=== PATIENT | male | born 1950 ===

== ENCOUNTER 2019-01-04 14:24 | Outpatient (CLI) | payer OTHER ==
[2019-01-04] MEDS ORDERED: JANUVIA50 MG (16:44)
[2019-01-04] MEDS ORDERED: SYNTHROID50 MCG (16:45)
== END 2019-01-04 14:46 | disposition home or self-care (01) ==
LOC: MRI 14:24
DX: M51.36 Other intervertebral disc degeneration, lumbar region (principal)
CPT/HCPCS: 72148

== ENCOUNTER 2019-01-04 16:17 | Emergency (ER) | payer OTHER ==
[~2019-01-04] VITALS: Ht 185.4 cm; Wt 102.1 kg
[2019-01-04] MEDS ORDERED: JANUVIA50 MG (16:44)
[2019-01-04] MEDS ORDERED: SYNTHROID50 MCG (16:45)
== END 2019-01-04 21:05 | disposition home or self-care (01) ==
LOC: ER 16:17
DX: R42 Dizziness and giddiness (principal)

== ENCOUNTER 2019-01-15 10:46 | Outpatient (CLI) | payer OTHER ==
[~2019-01-15 10:46] MED LIST: JANUVIA50 MG; SYNTHROID50 MCG
== END 2019-01-15 10:57 | disposition home or self-care (01) ==
LOC: MRI 10:46
DX: M54.2 Cervicalgia (principal)
CPT/HCPCS: 72141

== ENCOUNTER 2019-09-03 10:07 | Outpatient (CLI) | payer OTHER | END 2019-09-03 10:10 | disposition home or self-care (01) | LOC: MRI 10:07 | DX: G44.89 Other headache syndrome (principal); M48.07 Spinal stenosis, lumbosacral region | CPT/HCPCS: 70553; 72148; A9575 ==

== ENCOUNTER 2019-10-05 08:31 | Outpatient (CLI) | payer OTHER | END 2019-10-05 15:01 | disposition home or self-care (01) | LOC: NUCLEAR 08:31 | DX: N13.30 Unspecified hydronephrosis (principal); R10.0 Acute abdomen | CPT/HCPCS: 78708; A9539 ==